=== PATIENT | female | born 1965 | race Caucasian/White ===

== ENCOUNTER → 2024-09-21 | Outpatient (CLI) | payer BC, SELFPAY ==
[2024-09-21 12:16] LABS: Alanine Aminotransferase 21 U/L (10-49); Albumin, Serum 4.9 gm/dL (3.5-5.0); Alkaline Phosphatase 83 U/L (46-116); Anion Gap 6 (7-16); Aspartate Amino Transferase 19 U/L (0-34); BUN/Creatinine Ratio 17 Ratio (12-20); Bilirubin,Total 0.8 mg/dL (0.3-1.2); Blood Urea Nitrogen 15 mg/dL (9-23); Calcium 10.1 mg/dL (8.3-10.6); Calcium (Corrected) 10.1 mg/dL (8.5-10.1); Carbon Dioxide 31.4 mMol/L (20.0-31.0); Cardiac Risk Estimate 2.9 RATIO (3.7-5.6); Chloride 102 mMol/L (98-107); Cholesterol 201 mg/dL (132-200); Creatinine (Component) 0.9 mg/dL (0.6-1.3); Globulin 2.5 gm/dL (2.3-3.5); Glucose 95 mg/dL (74-106); HDL Cholesterol 69 mg/dL (40-60); LDL Cholesterol,Calculated 111 mg/dL (0-130); Osmolality,Calculated 278 (275-295); Potassium 4.2 mMol/L (3.4-5.1); Sodium 139 mMol/L (136-145); Total Protein 7.4 gm/dL (5.7-8.2); Triglycerides 105 mg/dL (30-150); eGFR > 60 See Note
== END | disposition home or self-care (01) ==
PROVIDERS: PCP Family Medicine; Referring Provider Physician Assistant; Visit Provider Physician Assistant
DX: I10 Essential (primary) hypertension (principal); E78.5 Hyperlipidemia, unspecified
CPT/HCPCS: 36415; 80053; 80061

== ENCOUNTER 2025-04-07 10:29 | Observation (INO) | payer BC, SELFPAY ==
[2025-04-07] VITALS (9 sets, daily range): BP systolic 107–173; BP diastolic 62–83; PULSE 57–77; RESP 16–20; TEMP 36.2–36.7; O2SAT 95–100; BMI 27.2; BMI 28.1
--- NOTE | 2025-04-07 10:43 | PD.EDRME ---
Rapid Medical Screening Exam E Arrival date/time: 04/07/25 10:29 59-year-old female with history of bowel obstruction presents to the emergency room today for complaints of nausea vomiting abdominal pain Chief Complaint: Abdominal Pain Vital signs: Vital Signs Temperature 98.0 F 04/07/25 10:35 Pulse Rate 77 04/07/25 10:35 Respiratory Rate 18 04/07/25 10:35 Blood Pressure 173/82 H 04/07/25 10:35 Pulse Oximetry (%) 98 04/07/25 10:35 Oxygen Delivery Method Room Air 04/07/25 10:35
--- NOTE | 2025-04-07 11:05 | XR_ITS ---
Examination: CT abdomen with intravenous contrast CT pelvis with intravenous contrast 2-D coronal reconstructions 2-D sagittal reconstructions Date and time of exam:April 07, 20015, 1330 hours., Comparison June 22, 2006. INDICATIONS: Onset abdominal pain today CTDI: vol (mGy) 12.2 DLP: (mGycm) 370 Technique: Multiple axial sections of the abdomen and pelvis have been obtained. 64 slice high-resolution scanner used. 3 mm axial sections have been obtained, post intravenous injection of 60 cc Isovue 370 2-D sagittal, coronal reconstructions obtained. Low dose protocols were performed. One or more of the following dose reduction techniques were used; automated exposure control, adjustment of the mA and/or KV according to patient size, use of iterative reconstruction technique. Findings: No focal liver or splenic lesions No gallstones No pancreatic or adrenal mass No renal or ureteral calculi Inflamed appendix with appendicolith, marked periappendiceal inflammatory change medial and posterior to the cecum, coronal image 54, acute appendicitis with localized mild perforation No pelvic abscess No pelvic mass Urinary bladder intact IMPRESSION: Acute appendicitis, no pelvic abscess
[2025-04-07] MEDS: SODIUM CHLORIDE 0.9% 1000 ML 1,000 ML 999 ML IV (11:17)
[2025-04-07] MEDS: ONDANSETRON INJ 2 MG/ML INJ 2 ML 4 MG IVP ×2 (11:18→13:19)
[2025-04-07] MEDS: MORPHINE SULF INJ 10 MG/ML VIAL 4 MG IVP (11:18)
--- NOTE | 2025-04-07 11:24 | PD.EDABDPN ---
ED Abdominal Pain RME/HPI General Chief Complaint: Abdominal Pain Stated complaint: ABD PAIN W/NAUSEA Time seen by provider: 04/07/25 10:56 Arrival date/time: 04/07/25 10:29 Limitations: no limitations RME / HPI RME / HPI narrative: 04/07/25 10:29 59-year-old female with history of bowel obstruction presents to the emergency room today for complaints of nausea vomiting abdominal pain DR. 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 Last oral intake was last night; last bowel movement was yesterday morning. She denies allergies and reports a family history of appendicitis (father). No history of smoking, alcohol, or drug use. Related Data Home Medications ?Medication ?Instructions ?Recorded ?Confirmed calcium carbonate (Calcium 500) 1 tab PO QDAY 07/21/19 07/29/20 hydrochlorothiazide 50 mg tablet 25 mg PO QDAY 07/21/19 07/30/20 krill 1,000 mg-omega-3 170 mg-dha 1 tab PO QDAY 07/21/19 07/30/20 50 mg-epa 80 ct-[id number]-mqblf capsule (krill oil) losartan 25 mg tablet 50 mg PO QDAY 07/21/19 07/29/20 astaxanthin 4 mg capsule 12 mg PO DAILY 07/30/20 07/30/20 magnesium 200 mg tablet 400 mg PO QDAY 07/30/20 07/30/20 Allergies Allergy/AdvReac Type Severity Reaction Status Date / Time No Known Allergies Allergy Verified 04/07/25 10:31 Review of Systems Review of Systems Systems Reviewed: All systems reviewed, normal except as documented Past Medical History Past Medical History CARDIAC: Positive Hypertension (PO MEDS) REPRODUCTIVE: Positive Previous Pregnancies () OTHER HISTORY: Positive Cancer Social History SMOKING STATUS: Never smoker SUBSTANCE USE: does not use ALCOHOL: Never ED Exam General Limitations: Present no limitations General appearance: Present alert and in no apparent distress Head Head exam: Present atraumatic, normocephalic and normal inspection Eye Eye exam: Present normal appearance, PERRL and EOMI ENT ENT exam: Present normal exam, normal oropharynx and mucous membranes moist Neck Neck exam: Present normal inspection, full ROM and trachea midline Chest Chest inspection: Present normal inspection and symmetric chest wall rise Respiratory Respiratory exam: Present normal lung sounds bilaterally Cardiovascular Cardiovascular exam: Present regular rate, normal rhythm and normal heart sounds Abdominal Exam Abdominal exam: Present tenderness (right mid abdominal tenderness), normal bowel sounds and hypoactive bowel sounds Extremities Exam Extremities exam: Present normal inspection and full ROM Back Exam Back exam: Present normal inspection and full ROM Neurological Exam Neurological exam: Present alert, oriented X3 and CN II-XII intact Psychiatric Psychiatric exam: Present normal affect and normal mood Skin Skin exam: Present warm, dry, intact and normal color Course Quality Measures none Orders Category Date Time Status COVID-19 Screening Questionnaire NOW Care 04/07/25 14:[address] Screening NOW Care 04/07/25 11:05 Active Decision to Admit X1 Care 04/07/25 14:51 Active Consult to General Surgery Stat Cons 04/07/25 14:[address] abdomen pelvis w con Stat Exams 04/07/25 11:05 Completed CBC Stat Lab 04/07/25 11:17 Completed Comprehensive Metabolic Panel Stat Lab 04/07/25 11:17 Completed HCG Qualitative,Urine Stat Lab 04/07/25 13:10 Completed Lipase Stat Lab 04/07/25 11:17 Completed UA, C/S IF [Urinalysis, C/S if Indicated] Stat Lab 04/07/25 13:10 Completed Morphine Inj Med 04/07/25 10:42 Discontinued 4 mg IVP X1 ONE Ondansetron Inj [Zofran Inj] Med 04/07/25 10:42 Discontinued 4 mg IVP X1 ONE Ondansetron Inj [Zofran Inj] Med 04/07/25 12:58 Discontinued 4 mg IVP X1 ONE POTASSIUM CHL 10 mEq IVPB [Kcl Ivpb] Med 04/07/25 14:54 Active 10 meq in 100 ml IV Q1H Piper/Tazo 3.375 gm Premix [Zosyn] Med 04/07/25 14:51 Active 3.375 gm in 50 ml IV X1 Ringers Lactated 1000 ml [Lactated Ringers] 500 ml Med 04/07/25 14:51 Active IV 250 mls/hr Sodium Chloride 0.9% 1000 ml [Ns] 1,000 ml Med 04/07/25 10:42 Discontinued IV 999 mls/hr Vital Signs Vital signs: Vital Signs Temperature 98.0 F 04/07/25 10:35 Pulse Rate 77 04/07/25 10:35 Respiratory Rate 18 04/07/25 10:35 Blood Pressure 173/82 H 04/07/25 10:35 Pulse Oximetry (%) 98 04/07/25 10:35 Oxygen Delivery Method Room Air 04/07/25 10:35 Abdominal Pain MDM MDM Narrative MDM Narrative:: I, Rosaline Power, am scribing for and in the presence of Dr. Sapp. 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 She denies allergies and reports a family history of appendicitis (father). How is presenting disease/condition affected by chronic disease/condition?: exacerbated by Evaluation data The following diagnostics were reviewed and interpreted by me:: lab results and radiology exam(s) Lab and/or radiology exams considered but not ordered:: none Interpretation Summary: Procedure(s): CT abdomen pelvis w con Accession Number(s): [id number] cc: Helio Sapp MD; Feng Go MD; Rizwana Sanchez MD~ Examination: CT abdomen with intravenous contrast CT pelvis with intravenous contrast 2-D coronal reconstructions 2-D sagittal reconstructions Date and time of exam:April 07, 2001 2025, 1330 hours., Comparison June 22, 2006. INDICATIONS: Onset abdominal pain today CTDI: vol (mGy) 12.2 DLP: (mGycm) 370 Technique: Multiple axial sections of the abdomen and pelvis have been obtained. 64 slice high-resolution scanner used. 3 mm axial sections have been obtained, post intravenous injection of 60 cc Isovue 370 2-D sagittal, coronal reconstructions obtained. Low dose protocols were performed. One or more of the following dose reduction techniques were used; automated exposure control, adjustment of the mA and/or KV according to patient size, use of iterative reconstruction technique. Findings: No focal liver or splenic lesions No gallstones No pancreatic or adrenal mass No renal or ureteral calculi Inflamed appendix with appendicolith, marked periappendiceal inflammatory change medial and posterior to the cecum, coronal image 54, acute appendicitis with localized mild perforation No pelvic abscess No pelvic mass Urinary bladder intact IMPRESSION: Acute appendicitis, no pelvic abscess Dictated By: Feng Go MD Medications / Prescriptions Medications or Prescriptions considered but not ordered:: none Medication administrations:: Medication Administration History Piperacillin/Tazobactam/Dextrose (Zosyn) 3.375 gm in 50 mls @ 100 mls/hr IV X1 ONE Stop: 04/07/25 15:20 Potassium Chloride (Kcl Ivpb) 10 meq in 100 mls @ 100 mls/hr IV Q1H KRISTINA Stop: 04/07/25 17:53 Lactated Ringer's (Lactated Ringers) 500 mls @ 250 mls/hr IV .Q2H ONE Stop: 04/07/25 16:50 Discontinued Medications Sodium Chloride (Ns) 1,000 mls @ 999 mls/hr IV .Q1H1M ONE Stop: 04/07/25 11:42 Last Infusion: 04/07/25 12:16 Dose: Infused Documented By: Admin: 04/07/25 11:17 Dose: 999 mls/hr Documented By: CG Morphine Sulfate (Morphine Sulf Inj 10 Mg/Ml Vial) 4 mg IVP X1 ONE Stop: 04/07/25 10:43 Last Admin: 04/07/25 11:18 Dose: 4 mg Documented By: CG Ondansetron HCl (Ondansetron Inj 2 Mg/Ml Inj 2 Ml) 4 mg IVP X1 ONE; Protocol Stop: 04/07/25 10:43 Last Admin: 04/07/25 11:18 Dose: 4 mg Documented By: CG Ondansetron HCl (Ondansetron Inj 2 Mg/Ml Inj 2 Ml) 4 mg IVP X1 ONE; Protocol Stop: 04/07/25 12:59 Last Admin: 04/07/25 13:19 Dose: 4 mg Documented By: CG see above Consultations Consultation(s) initiated? (list below): Yes Consultation #1 (Physician, Specialty, Details): Discussed test HPI, PMHx, lab, radiology results and/or management with hospitalist services with Dr. Cardona consulting. Will admit for further evaluation and management. Accepts patient for admission. Time: 15:00 Diagnosis Differential diagnosis abdominal pain: other (bowel obstruction, appendicitis, constipation with possible ileus) Most likely diagnosis given after review of the tests above:: Acute appendicitis with perforation Hypertension Hypokalemia Admission Indicated Admission indicated?: indicated Admission Request Was there a request for admission?: Yes Admission Attestation Admission request attestation: Discussed case with [] from Hospitalist service regarding admission. Discussed patients ED course, exam findings, labs, and radiology results. The Hospitalist [agrees,declines] to accept the patient for admission. Disposition Plan Disposition Plan: Admit Discharge Plan Plan Patient Disposition: Admit Acute Care w/in Hospital Prescriptions/Referrals Prescriptions/Med Rec: No Action hydrochlorothiazide 50 mg Tablet 25 mg PO QDAY calcium carbonate [Calcium 500] 500 mg calcium (1,250 mg) Tablet 1 tab PO QDAY losartan 25 mg Tablet 50 mg PO QDAY [id number]-[id number]-ast [krill oil] 1,[id number] mg Capsule 1 tab PO QDAY magnesium 200 mg Tablet 400 mg PO QDAY astaxanthin 4 mg Capsule 12 mg PO DAILY Referrals: Rizwana Sanchez MD [Primary Care Provider] - In 1 week Problem List Clinical Impression: Acute appendicitis, Hypertension, Hypokalemia Impression comment: Acute appendicitis with perforation Patient/Caregiver Discharge Instructions Print Language: [place] Stand Alone Forms: Janina Award Info., Patient Portal Info Letter
[2025-04-07 11:32] LABS: Basophils # (Auto) 0.0 Thou/mm3 (0.0-0.2); Basophils % (Auto) 0 % (0-2.5); Eosinophils # (Auto) 0.0 Thou/mm3 (0.0-0.5); Eosinophils % (Auto) 0 % (0-10); Hematocrit 40.0 % (36.0-46.0); Hemoglobin 14.4 g/dL (12.0-16.0); Immature Granulocytes Auto 0.07 Thou/mm3 (0.00-0.00); Lymphocytes # (Auto) 0.7 Thou/mm3 (1.0-4.8); Lymphocytes % (Auto) 5 % (10-50); Mean Corpuscular HGB Conc 36.0 g/dl (31.0-37.0); Mean Corpuscular Hemoglobin 33.1 pg (25.0-35.0); Mean Corpuscular Volume 92 fL (80-100); Monocytes # (Auto) 0.6 Thou/mm3 (0.0-0.8); Monocytes % (Auto) 4 % (0-12); Neutrophils # (Auto) 12.6 Thou/mm3 (1.8-7.7); Neutrophils % (Auto) 90 % (37-80); Nucleated Red Blood Cell # 0.00 Thou/mm3 (0.00-0.00); Nucleated Red Blood Cell % 0 /100 WBC (0); Platelet Count 233 Thou/mm3 (140-440); RDW Standard Deviation 42.4 fL (36.4-46.3); Red Blood Count 4.35 Miln/mm3 (4.00-5.20); White Blood Count 14.0 Thou/mm3 (3.6-11.0)
[2025-04-07 12:11] LABS: Alanine Aminotransferase 15 U/L (10-49); Albumin, Serum 4.6 gm/dL (3.5-5.0); Albumin/Globulin Ratio 1.9 (1.2-2.2); Alkaline Phosphatase 81 U/L (46-116); Anion Gap 10 (7-16); Aspartate Amino Transferase 19 U/L (0-34); BUN/Creatinine Ratio 13 Ratio (12-20); Bilirubin,Total 0.9 mg/dL (0.3-1.2); Blood Urea Nitrogen 12 mg/dL (9-23); Calcium 9.2 mg/dL (8.3-10.6); Calcium (Corrected) 9.2 mg/dL (8.5-10.1); Carbon Dioxide 28.1 mMol/L (20.0-31.0); Chloride 99 mMol/L (98-107); Creatinine (Component) 0.9 mg/dL (0.6-1.3); Estimated Creatinine Clearance 76.2 mL/min (>60); Globulin 2.4 gm/dL (2.3-3.5); Glucose 132 mg/dL (74-106); Lipase 36 U/L (12-53); Osmolality,Calculated 275 (275-295); Potassium 3.2 mMol/L (3.4-5.1); Sodium 137 mMol/L (136-145); Total Protein 7.0 gm/dL (5.7-8.2); eGFR > 60 See Note
[2025-04-07 13:24] LABS: Collection Type, Urine Clean Catch
[2025-04-07 13:42] LABS: Bilirubin,Urine Negative (Negative); Blood,Urine Negative (Negative); Clarity,Urine Clear (Clear/Hazy); Color,Urine Lt-Yellow (Lt Yel-Yel); Culture Indicated,Urine Not Indicated; Glucose, Urine Negative (Negative); Hyaline Casts,Urine < 1 /hpf (0-1); Ketones,Urine 2+ (Negative); Leukocyte Esterase,Urine Negative (Negative); Nitrite,Urine Negative (Negative); PH,Urine 6.0 (5.0-7.0); Protein,Urine Trace (Neg - Trace); RBC,Urine 3 /hpf (0-3); Specific Gravity,Urine 1.026 (1.001-1.035); Squamous Epithelial Cell,Urine 1 /hpf (0-5); Urobilinogen,Urine Negative mg/dL (0.0-1.0); WBC,Urine 1 /hpf (0-5)
[2025-04-07 13:56] LABS: HCG Qualitative,Urine Negative
--- NOTE | 2025-04-07 15:17 | ESHP_ITS ---
<Statement entered by Fransisco Temple MD - 04/07/25 23:43> Patient was examined and case was reviewed with team including attending physician. Note reviewed, I agree with most of its contents and agree with the patient's care. 59-year-old female with past medical history of hypertension who presented to the ED due to nausea and vomiting as well as lower abdominal pain for 1 day. Patient was found to have leukocytosis with left shift some hypokalemia, rest of workup unremarkable. CT abdomen pelvis showed acute appendicitis with localized mild perforation no abscess noted. ER consulted general surgery who recommended admission. Patient was started on Zosyn and IV fluids and was made n.p.o. for possible surgical intervention today. Case discussed with my attending Dr. Jose Temple MD PGY-2 Documentation for date of: 04/07/25 HPI History of Present Illness History of present illness: Ms. Avilez is a 59-year-old female with PMH of hypertension who presented to the ED on 04/07 with abdominal pain, N/V x 1 day. Last oral intake was last night; last bowel movement was yesterday morning. No hx abdominal surgeries. No hematemesis, melena, hematochezia. ED course: afebrile, BP 173/82, spO2 appropriate on RA. Labs significant for leukocytosis (14) with neutrophilic predominance and left shift, mild hypokalemia (3.2). Lipase WNL, LFT WNL, BUN and Cr WNL. UA 2+ ketone, negative for UTI. CT a/p showed acute appendicitis with localized mild perforation, no pelvic abscess. Started on LR, pain management, Pip-tazo dose x1, and Zofran. Admitted for acute appendicitis, pending appendectomy. 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 Occasional EtOH on social occasions Family hx: appendicitis (father + daughter) Review of Systems Review of Systems Narrative Review of Systems: 14 point ROS negative other than HPI Exam Vital Signs Temp Pulse Resp BP Pulse Ox O2 Del Method 98.0 F 77 18 173/82 H 98 Room Air 04/07/25 10:35 04/07/25 10:35 04/07/25 10:35 04/07/25 10:35 04/07/25 10:35 04/07/25 10:35 Narrative Exam General: Lying in bed with emesis bag, dry heaving Eye: PERRL, EOMI, normal conjunctiva, no scleral icterus HENT: Normocephalic, atraumatic, clear tympanic membranes, normal hearing Neck: Supple, non-tender, no carotid bruits, no JVD Lungs: Clear to auscultation bilaterally, non-labored respirations, symmetric chest rise Heart: Normal S1 and S2, no S3 or S4 appreciated. Normal rate and regular rhythm, no murmurs, rubs gallops, or edema. Peripheral pulses intact bilaterally, capillary refill brisk distally Abdomen: TTP in left lower quadrant Musculoskeletal: Normal range of motion and strength, no tenderness or swelling Skin: Skin is warm, dry, no rashes or lesions. Neurologic: Alert, awake and oriented x3. Cranial nerves II - XII grossly intact. Psychiatric: Cooperative, appropriate mood and affect Results: Labs 04/07/25 11:17 04/07/25 11:17 Labs: Short CBC 04/07/25 Range/Units 11:17 WBC 14.0 H (3.6-11.0) Thou/mm3 Hgb 14.4 (12.0-16.0) g/dL Hct 40.0 (36.0-46.0) % Plt Count 233 (140-440) Thou/mm3 BMP 04/07/25 11:17 Sodium 137 Potassium 3.2 L Chloride 99 Carbon Dioxide 28.1 BUN 12 Creatinine 0.9 Glucose 132 H Calcium 9.2 Liver Function 04/07/25 Range/Units 11:17 Total Bilirubin 0.9 (0.3-1.2) mg/dL AST 19 (0-34) U/L ALT 15 (10-49) U/L Alkaline Phosphatase 81 (46-116) U/L Albumin 4.6 (3.5-5.0) gm/dL Urine 04/07/25 Range/Units 13:10 Urine Color Lt-Yellow (Lt Yel-Yel) Urine Clarity Clear (Clear/Hazy) Urine pH 6.0 (5.0-7.0) Ur Specific [place] 1.026 (1.001-1.035) Urine Protein Trace (Neg - Trace) Urine Glucose (UA) Negative (Negative) Quality Measures Quality Measures none Medications Home Medications and Allergies Home Medications ?Medication ?Instructions ?Recorded ?Confirmed ?Type calcium carbonate (Calcium 500) 1 tab PO QDAY 07/21/19 07/29/20 History hydrochlorothiazide 50 mg tablet 25 mg PO QDAY 9 07/30/20 History krill 1,000 mg-omega-3 170 mg-dha 1 tab PO QDAY 07/30/20 History 50 mg-epa 80 dh-eqkxeg-duofi capsule (krill oil) losartan 25 mg tablet 50 mg PO QDAY 07/21/1907/29 History astaxanthin 4 mg capsule 12 mg PO DAILY 07/30/2007/08 History magnesium 200 mg tablet 400 mg PO QDAY 07/30/2007/08 History Allergies Allergy/AdvReac Type Severity Reaction Status Date / Time No Known Allergies Allergy Verified 04/07/25 10:31 Visit Medications Piperacillin/Tazobactam/Dextrose (Zosyn) 3.375 gm in 50 mls @ 100 mls/hr IV X1 ONE Stop: 04/07/25 15:20 Potassium Chloride (Kcl Ivpb) 10 meq in 100 mls @ 100 mls/hr IV Q1H KRISTINA Stop: 04/07/25 17:53 Lactated Ringer's (Lactated Ringers) 500 mls @ 250 mls/hr IV .Q2H ONE Stop: 04/07/25 16:50 Discontinued Medications Hydromorphone HCl (Hydromorphone Inj 2 Mg/Ml Vial) 0.5 mg IVP X1 ONE Stop: 04/07/25 15:10 Sodium Chloride (Ns) 1,000 mls @ 999 mls/hr IV .Q1H1M ONE Stop: 04/07/25 11:42 Last Infusion: 04/07/25 12:16 Dose: Infused Morphine Sulfate (Morphine Sulf Inj 10 Mg/Ml Vial) 4 mg IVP X1 ONE Stop: 04/07/25 10:43 Last Admin: 04/07/25 11:18 Dose: 4 mg Ondansetron HCl (Ondansetron Inj 2 Mg/Ml Inj 2 Ml) 4 mg IVP X1 ONE; Protocol Stop: 04/07/25 10:43 Last Admin: 04/07/25 11:18 Dose: 4 mg Ondansetron HCl (Ondansetron Inj 2 Mg/Ml Inj 2 Ml) 4 mg IVP X1 ONE; Protocol Stop: 04/07/25 12:59 Last Admin: 04/07/25 13:19 Dose: 4 mg Ondansetron HCl (Ondansetron Inj 2 Mg/Ml Inj 2 Ml) 8 mg IVP X1 ONE; Protocol Stop: 04/07/25 15:10 Pantoprazole Sodium (Pantoprazole Inj 40 Mg Vial) 40 mg IVP X1 ONE Stop: 04/07/25 15:10 Assessment & Plan Plan #Acute appendicitis Abd pain and N/V x [address] a/p Plan: - Plan for appendectomy - NPO - IV fluids: LR at 250 ml/hr - Pain management: Morphine 4 mg IV q4h IV PRN - Antiemetics: Zofran 4 mg q4h IV PRN - Abx: Zosyn 3.375 mg IV q8h (04/07 - 04/14) #Hypertension Home med: Losartan 50 mg daily, HCTZ 25 mg daily BP appropriate now Plan: - CTM Dispo: Pending appendectomy Diet: NPO Bowel Reg: n/a VTE ppx: hold pending appendectomy GI ppx: n/a Code status: Full Plan discussed with Dr. Pillo Temple (senior resident) and Dr. Garcia (attending) Jaqueline Box, PGY1
[2025-04-07] MEDS: PIPER/TAZO 3.375 GM PREMIX 3.375 GM/50 ML BAG IV ×2 (15:54→22:46)
[2025-04-07] MEDS: RINGERS LACTATED 1000 ML 500 ML 250 ML IV (15:55)
[2025-04-07] MEDS: POTASSIUM CHL 10 mEq IVPB 10 MEQ/100 ML BAG 100 MEQ IV (15:55)
[2025-04-07] MEDS: HYDROmorphone INJ 2 MG/ML VIAL 0.5 MG IVP (15:56)
[2025-04-07] MEDS: ONDANSETRON INJ 2 MG/ML INJ 2 ML 8 MG IVP (15:57)
--- NOTE | 2025-04-07 16:09 | PD.SURCONS ---
HPI Consult details History of present illness: 59F with HTN presenting with abdominal pain and nausea. Pt reports her pain began yesterday afternoon first in the umbilical region, then radiating to the RLQ. She was also feeling constipated and tried a mineral oil enema but because symptoms persisted she presented to ER with findings of acute appendicitis with localized perforation. Pt states her pain is ongoing and she has not had anything to eat or drink today PMH: HTN PSHx: D&C, thyroid and breast biopsies (pt was told each time that she had more bleeding than usual but was never diagnosed with any particular condition) Meds: HCTZ, losartan Allergies: NKDA Family hx: father had lung CA Review of Systems Review of Systems ROS Unobtainable: All systems reviewed & no additional complaints except as documented Meds Home Medications and Allergies Home Medications ?Medication ?Instructions ?Recorded ?Confirmed ?Type calcium carbonate (Calcium 500) 1 tab PO QDAY 07/21/19 07/29/20 History hydrochlorothiazide 50 mg tablet 25 mg PO QDAY 07/21/19 07/30/20 History krill 1,000 mg-omega-3 170 mg-dha 1 tab PO QDAY 07/21/19 07/30/20 History 50 mg-epa 80 nc-nvruaw-blaer capsule (krill oil) losartan 25 mg tablet 50 mg PO QDAY 07/21/19 07/29/20 History astaxanthin 4 mg capsule 12 mg PO DAILY 07/30/20 07/30/20 History magnesium 200 mg tablet 400 mg PO QDAY 07/30/20 07/30/20 History Allergies Allergy/AdvReac Type Severity Reaction Status Date / Time No Known Allergies Allergy Verified 04/07/25 10:31 Exam Vital Signs Temp Pulse Resp BP Pulse Ox O2 Del Method 98.1 F 63 18 130/62 95 Room Air 04/07/25 16:04 04/07/25 16:04 04/07/25 10:35 04/07/25 16:04 04/07/25 16:04 04/07/25 16:04 Constitutional Constitutional: no acute distress Routine Respiratory Exam Respiratory: Present no resp distress Routine Abdominal Exam Abdominal: Present soft and tenderness (mild RLQ tenderness, negative Rovsing's sign); Absent distended, rebound or guarding Results Results: Laboratory Laboratory results: results reviewed Results: Imaging CT scan - abdomen: report reviewed and image reviewed Assessment & Plan Plan 59F with HTN presenting with acute appendicitis with localized perforation and appendicolith. I explained alternatives/benefits/risks of surgery including bleeding (which per her report she is at higher risk for than the average person), infection, need for conversion to open, as well as the possibility the appendix is too walled off for safe removal. All questions were answered and pt is agreeable to proceeding OR today for laparoscopic appendectomy, possible open
--- NOTE | 2025-04-07 17:47 | PC.NURSE ---
Spoke with Dr. Garcia who stated patient needs to go to Med Surg. Order edited
--- NOTE | 2025-04-07 18:29 | ESOP_ITS ---
Date of Procedure 04/07/25 Pre Op Diagnosis Acute appendicitis Post Op Diagnosis Gangrenous appendicitis with localized perforation Procedure Laparoscopic appendectomy, washout Findings Gangrenous of appendix with pus oozing from midportion Procedure Description After discussion of risks and benefits, patient was brought to the operating ro om, SCDs were placed and general anesthesia was induced. She had already received preoperative antibiotics and had urinated immediately prior to entering the operating room. After timeout an infraumbilical incision was made with a #15 blade and the skin was elevated with towel clamps. A Veress needle was placed into the incision and proper positioning was confirmed with a drop test. The abdomen was insufflated to 15 mmHg at which point the Veress was exchanged for a 5 mm camera using a Visiport technique. There were no signs of injury from the point of entry. 2 additional ports were placed under direct vision, one 5 mm at the suprapubic region and one 5 mm in the left lower quadrant. The infraumbilical port was upsized to a 12 mm also under direct vision. Patient was placed in Trendelenburg with left side down. The appendix was identified by tracing the tinea of the colon was noted to be posterior lateral to the cecum. Aside from the base the rest of the appendix was gangrenous and the midportion oozed malodorous pus. The appendix was freed from surrounding tissues and the base was stapled with a 45 mm blue load stapler. The mesoappendix was transected with the harmonic scalpel. The area was gently irrigated and there were no signs of bleeding. The pus was also gently irrigated and there was no pus or blood. The specimen was removed in an Endo Catch bag via the i nfraumbilical port and the infra umbilical fascia was closed with three 0 Vicryl sutures using a Kvng-Giorgio. Pneumoperitoneum was released and ports were removed under direct vision. Incisions were irrigated and infiltrated with half percent Marcaine for a total of 30 cc. Incisions were closed with 4-0 Monocryl and reinforced with Dermabond. Patient was extubated and brought to PACU in st able condition Pathology / specimen Other (Appendix) Estimated Blood Loss 25 Surgeon Nela Cardona MD Surgical Staff Operation Date: 04/07/25 17:30 Case Staff Anesthesiologist: Shorty Nava RN First Assistant: Fartun Garcia
--- NOTE | 2025-04-07 18:50 | SUR.PHASEI ---
1839 PATIENT RECEIVED INTO BAY 01, REPORT RECEIVED FROM SUNDEEP OLMSTEAD AND DR GRAF. THREE INCISION TO ABDOMEN CLEAN DRY INTACT AND DRESSED WITH DREMABOND. PATIENT ON 6L O2 VIA OXY MASK, NO S/S OF DISTRESSED NOTED AND VS STABLE.
--- NOTE | 2025-04-07 19:23 | SUR.PHASEI ---
1900 PATIENT TOLERATING PO ICE CHIP, DENIES ANY PAIN OR DISCOMFORT. VS STABLE.
--- NOTE | 2025-04-07 19:25 | SUR.PHASEI ---
191 REPORT GIVEN TO SAMREEN OLMSTEAD, PATIENT TRANSFERRED TO ROOM 354 IN STABLE CONDITION.
--- NOTE | 2025-04-07 20:00 | PC.NURSE ---
patient does not know exact doses of medication, no list available at this time, per patient will have bring her medication tomorrow 04/08 for med rec.
[2025-04-07] MEDS: ACETAMINOPHEN IVPB 1,000 MG/100 ML VIAL 250 MG IV (20:35)
[2025-04-07] MEDS: RINGERS LACTATED 1000 ML 1,000 ML 75 ML IV (22:42)
[2025-04-08] VITALS: BP 110/60; PULSE 63; RESP 17; TEMP 36.2; O2SAT 95
[2025-04-08 01:29] VITALS: PULSE 66; RESP 16; RESP 94
[2025-04-08 04:00] VITALS: BP 120/66; PULSE 63; RESP 17; TEMP 36.2; O2SAT 94
[2025-04-08] MEDS: PIPER/TAZO 3.375 GM PREMIX 3.375 GM/50 ML BAG IV (05:48)
[2025-04-08] MEDS: ACETAMINOPHEN IVPB 1,000 MG/100 ML VIAL 250 MG IV ×2 (05:53→12:31)
[2025-04-08 05:56] LABS: Basophils # (Auto) 0.0 Thou/mm3 (0.0-0.2); Basophils % (Auto) 0 % (0-2.5); Eosinophils # (Auto) 0.0 Thou/mm3 (0.0-0.5); Eosinophils % (Auto) 0 % (0-10); Hematocrit 36.7 % (36.0-46.0); Hemoglobin 12.8 g/dL (12.0-16.0); Immature Granulocytes Auto 0.06 Thou/mm3 (0.00-0.00); Lymphocytes # (Auto) 0.4 Thou/mm3 (1.0-4.8); Lymphocytes % (Auto) 3 % (10-50); Mean Corpuscular HGB Conc 34.9 g/dl (31.0-37.0); Mean Corpuscular Hemoglobin 32.7 pg (25.0-35.0); Mean Corpuscular Volume 94 fL (80-100); Monocytes # (Auto) 0.6 Thou/mm3 (0.0-0.8); Monocytes % (Auto) 4 % (0-12); Neutrophils # (Auto) 14.7 Thou/mm3 (1.8-7.7); Neutrophils % (Auto) 93 % (37-80); Nucleated Red Blood Cell # 0.00 Thou/mm3 (0.00-0.00); Nucleated Red Blood Cell % 0 /100 WBC (0); Platelet Count 175 Thou/mm3 (140-440); RDW Standard Deviation 43.5 fL (36.4-46.3); Red Blood Count 3.92 Miln/mm3 (4.00-5.20); White Blood Count 15.8 Thou/mm3 (3.6-11.0)
[2025-04-08 06:22] LABS: Alanine Aminotransferase 10 U/L (10-49); Albumin, Serum 3.8 gm/dL (3.5-5.0); Albumin/Globulin Ratio 1.8 (1.2-2.2); Alkaline Phosphatase 62 U/L (46-116); Anion Gap 12 (7-16); Aspartate Amino Transferase 15 U/L (0-34); BUN/Creatinine Ratio 10 Ratio (12-20); Bilirubin,Total 1.0 mg/dL (0.3-1.2); Blood Urea Nitrogen 10 mg/dL (9-23); Calcium 8.3 mg/dL (8.3-10.6); Calcium (Corrected) 8.5 mg/dL (8.5-10.1); Carbon Dioxide 25.1 mMol/L (20.0-31.0); Chloride 99 mMol/L (98-107); Creatinine (Component) 1.0 mg/dL (0.6-1.3); Estimated Creatinine Clearance 69.7 mL/min (>60); Globulin 2.1 gm/dL (2.3-3.5); Glucose 162 mg/dL (74-106); Magnesium 1.6 mg/dL (1.6-2.6); Osmolality,Calculated 274 (275-295); Phosphorous 3.6 mg/dL (2.4-5.1); Potassium 3.1 mMol/L (3.4-5.1); Sodium 136 mMol/L (136-145); Total Protein 5.9 gm/dL (5.7-8.2); eGFR > 60 See Note
[2025-04-08 07:51] VITALS: BP 111/69; PULSE 63; RESP 18; TEMP 36.1; O2SAT 92
[2025-04-08 08:29] VITALS: PULSE 72; RESP 18; RESP 95
[2025-04-08] MEDS: Magnesium Sulfate 4 GM Ivpb 4 GM/50 ML BAG IV (09:33)
[2025-04-08] MEDS: POTASSIUM CHL 10 mEq IVPB 10 MEQ/100 ML BAG 75 MEQ IV ×3 (09:33→12:30)
--- NOTE | 2025-04-08 10:28 | PC.SS ---
Latesha Avilez is a 59-year-old female admitted to Med Surg for Acute Appendicitis. SS conducted bedside contact with the patient to complete initial assessment and to discuss discharge planning. Role and reason explained. Patient confirmed demographic information. Patient identifies Andrea Hoffman [phone] as her surrogate decision maker. Pt states she lives with family and is able to complete all ADL?s independently. No need for any source of DME. Pts PCP is Dr. Rizwana Sanchez ([facility]) last visit 1 week ago. Pharmacy of choice is [facility]. Discharge options discussed and the pt wishes to return home.? Family will provide transportation upon DC. No further intervention required at this time, social media sr strategy manager would be available to address any further concerns. DC Plan: Home Contact: Andrea Address: Confirmed on face sheet PCP: Mica Caban ([facility])
[2025-04-08] MEDS: RINGERS LACTATED 1000 ML 1,000 ML 75 ML IV (10:58)
[2025-04-08 12:00] VITALS: BP 117/68; PULSE 62; RESP 16; TEMP 36.1; O2SAT 95
--- NOTE | 2025-04-08 12:49 | ESDS_ITS ---
Planned Discharge Date 04/08/25 DS: Providers Provider Date of admission: 04/07/25 17:33 Primary care physician: Rizwana Sanchez MD Admitting Provider: Bhavya Garcia MD Attending Provider on Admission: Bhavya Garcia MD Consults: 04/07/25 14:51 Consult to General Surgery Stat Comment: Consulting Provider: Nela Cardona Attending Provider on DC: Fuad Modi MD Discharging Provider: Santiago Zarate DO Anticipated date of discharge: 04/08/25 DS: Diagnosis Problem List Completed Was Problem List Reviewed/Reconciled?: Yes Hospital Course Hospital Course Hospital course: Ms. Avilez is a 59-year-old female with PMH of hypertension admitted for acute appendicitis. Pt reported lower abdominal pain with nausea and vomiting since 04/06/25. CT A/P on 04/08/25 confirmed appendicitis with no pelvic abscess. Gen surg was consulted and a laparoscopic appendectomy was performed on 04/07/25 without complication, however, did have a finding of gangrenous appendix with pus oozing from midportion. Post-op Hgb stable with slight elevation of WBC. Zosyn was given before surgery and continued post surgery. Pt reported 2/10 abdomen pain and had a bowel movement prior to discharge. Pt tolerated regular diet well post surgery and denied nausea and vomiting. Surgical sites dry, clean, and intact without erythema or drainage. Pt was advised to follow up with gen surg in 2 weeks after discharge and continue taking her Augmentin. Pt is medically and physically stable for discharge. Diagnosis #Acute Appendicitis #Hypertension Discharge Plan: Follow up with Dr. Cardona within 2 weeks. Take Augmentin 1 tab twice daily for 4 days. Take Percocet 1 tab as needed for pain every 8 hours. Follow up with PCP within 2 weeks. In case of emergency call 911 or come back to the ED Case discussed with my senior resident Dr. Flanagan Case discussed with my attending Dr. Ly Zarate DO PGY 1 Time Spent with Patient Time attestation: Total time spent providing and/or coordinating discharge services: Time spent: Greater than 30 minutes Exam Vital Signs Temp Pulse Resp BP Pulse Ox O2 Del Method O2 Flow Rate 97 F 62 16 117/68 95 Room Air 4 04/08/25 12:00 04/08/25 12:00 04/08/25 12:00 04/08/25 12:04/08/25 12:04/08/25 12:00 04/07/25 18:55 Narrative Exam General: Well appearing, well nourished, in no distress. Oriented x 3, normal mood and affect . Ambulating without difficulty. Skin: Good turgor, no rash, unusual bruising or prominent lesions. Head: Normocephalic, atraumatic, no visible or palpable masses, depressions, or scaring. Eyes: Visual acuity intact, conjunctiva clear, sclera non-icteric, EOM intact, PERRL, no exudates or hemorrhages Heart: No cardiomegaly or thrills; regular rate and rhythm, no murmur or gallop Lungs: Clear to auscultation and percussion. No rales, wheeze, or rhonchi Abdomen: Bowel sounds normal, no tenderness, organomegaly, masses, or hernia. Surgical sites dry, clean, and intact without erythema or drainage. Back: Spine normal without deformity or tenderness, no CVA tenderness Extremities: No amputations or deformities, cyanosis, edema or varicosities, peripheral pulses intact Discharge Plan Plan Patient Disposition: HOME (Self Care) Patient condition on transfer: Stable Care Plan Goals: Follow up with Dr. Cardona within 2 weeks. Take Augmentin 1 tab twice daily for 4 days. Take Percocet 1 tab as needed for pain every 8 hours. Follow up with PCP within 2 weeks. Prescriptions/Referrals Prescriptions/Med Rec: New amoxicillin-pot clavulanate 875-125 mg tablet 1 tab PO BID 4 Days Qty: 8 0RF oxycodone-acetaminophen [Endocet] 5-325 mg tablet 1 tab PO Q8H MDD 15 mg PRN (Reason: pain) Qty: 10 0RF Continued hydrochlorothiazide 25 mg tablet 25 mg PO .every morning losartan 50 mg tablet 75 mg PO DAILY Referrals: Nela Cardona MD [Physician] - (You will receive a phone call to confirm a follow-up appointment with me in 2 weeks) Rizwana Sanchez MD [Primary Care Provider] - Patient/Caregiver Discharge Instructions Other Discharge Activity Instructions:: You may resume showering tomorrow, 04/09 Avoid bathing or swimming for 2 weeks Avoid lifting objects greater than 10 pounds for 6 weeks Your incisions have skin glue on them which will fall off on its own and does not need to be replaced Your stitches will not need to be removed If you develop worsening pain, nausea/vomiting, fever or redness at the incision sites please feel free to call the office if during business hours or seek care in ER Education Materials: Appendectomy Laparoscopic Dc, Preventing Surgical Site Infections Print Language: Croatian Stand Alone Forms: Janina Award Info., Patient Portal Info Letter Discharge Order Discharge Orders: Discharge (Routine); Ordered 04/08/25 Ordered By: Fuad Modi Quality Discharge Quality Measures none MD Attestestation MD Attestation I have examined the patient, reviewed labs and imaging findings, discussed the case with the resident(s), and reviewed entered orders. I agree with the plan of care as outlined in this note. Time Spent: [address] Ly MD
--- NOTE | 2025-04-08 12:55 | PD.SURPROG ---
Documentation for date of: 04/08/25 Subjective Subjective Brief History: 59F with HTN presenting with abdominal pain and nausea. Pt reports her pain began yesterday afternoon first in the umbilical region, then radiating to the RLQ. She was also feeling constipated and tried a mineral oil enema but because symptoms persisted she presented to ER with findings of acute appendicitis with localized perforation. Pt states her pain is ongoing and she has not had anything to eat or drink today PMH: HTN PSHx: D&C, thyroid and breast biopsies (pt was told each time that she had more bleeding than usual but was never diagnosed with any particular condition) Meds: HCTZ, losartan Allergies: NKDA Family hx: father had lung CA Narrative: Pain controlled, no nausea, tolerating diet and passing gas, remaining afebrile Exam Vital Signs Temp Pulse Resp BP Pulse Ox O2 Del Method O2 Flow Rate 97 F 62 16 117/68 95 Room Air 4 04/08/25 12:00 04/08/25 12:00 04/08/25 12:00 04/08/25 12:00 04/08/25 12:00 04/08/25 12:00 04/07/25 18:55 Constitutional Constitutional: no acute distress Routine Respiratory Exam Respiratory: Present no resp distress Routine Abdominal Exam Abdominal: Present soft and surgical scars (Incisions clean dry intact); Absent tenderness or distended Results Results: Laboratory Laboratory results: results reviewed Assessment & Plan Plan 59F with HTN who presented with signs of appendicitis now s/p laparoscopic appendectomy with findings of gangrenous appendicitis and contained perforation 04/07, recovering well overall OK for dc from my standpoint to continue PO abx course Will follow up as outpt PROCEDURES: Procedures Laparoscopic appendectomy, washout
== END 2025-04-08 14:17 | disposition home or self-care (01) ==
LOC: SERX 17:51 → S3NX 04-08 12:20 → SERHOLD 04-11 08:28
PROVIDERS: Nurse Practitioner Primary Care; Surgery; Admitting Provider Internal Medicine; Emergency Provider Family Medicine; PCP Family Medicine; Visit Provider Internal Medicine
PROC: 0DTJ4ZZ Resection of Appendix, Percutaneous Endoscopic Approach (ICD-10-PCS; CPT 44970; principal; 2025-04-07 17:30)
DX: K35.32 Acute appendicitis with perforation, localized peritonitis, and gangrene, without abscess (principal); I10 Essential (primary) hypertension; E87.6 Hypokalemia
CPT/HCPCS: 44970; 36415; 74177; 80053; 81001; 81025; 83690; 83735; 84100; 85025; 96361; 96365; 96375; 96376; A4217; A4649; G0378; J0131; J1100; J1171; J1885; J2250; J2270; J2405; J2470; J2543; J2704; J3010; J3475; J3480; J3490; J7030; J7120; Q9967

== ENCOUNTER 2025-04-16 13:42 | Outpatient (AMB) | payer BC, SELFPAY ==
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
[2025-04-16 13:50] VITALS: BP 137/83; PULSE 71; RESP 18; TEMP 35.7; O2SAT 96; BMI 28.2
== END 2025-04-16 14:35 | disposition home or self-care (01) ==
PROVIDERS: PCP Family Medicine; Referring Provider Family Medicine; Supervising Provider Surgery; Visit Provider Surgery
DX: Z48.815 Encounter for surgical aftercare following surgery on the digestive system (principal)
CPT/HCPCS: 99213; G0463